=== PATIENT | female | born 2000 | race Caucasian/White ===

== ENCOUNTER 2021-02-16 23:45 | Observation (INO) | payer BC ==
[2021-02-17] MEDS ORDERED: Ondansetron PF 4 MG/2 ML Vial IVP PRN (00:32)
[2021-02-17] MEDS ORDERED: Ondansetron ODT 4 MG TAB PO PRN (00:32)
[2021-02-17] MEDS ORDERED: Morphine 4 MG/ML VIAL SLOW IVP PRN (00:35)
[2021-02-17] MEDS ORDERED: FLU VACC QS2021-22(6MOS UP)/PF 60 MCG/0.5 ML SYRINGE IM ONE (02:15)
[2021-02-17 03:49] VITALS: BMI 25.1
[2021-02-17 04:01] LABS: SARS-CoV-2 NAA Rapid Test Not Detected (NotDetected)
[2021-02-17 06:32] LABS: #Monocytes 0.9 10x3/uL (0.0-1.1); #Neutrophils 8.1 10x3/uL (1.5-8.4); %Basophils 0.3 % (0.0-2.0); %Eosinophils 0.2 % (0.0-6.0); %Lymphocytes 18.8 % (18.0-47.0); %Monocytes 8.3 % (0.0-10.0); Hemoglobin 12.7 g/dL (12.0-15.5); Mean Corpuscular HGB CONC 33.2 g/dL (32.0-36.0); Mean Corpuscular Hemoglobin 28.7 pg (27.0-33.0); Mean Corpuscular Volume 86.2 fl (81.6-98.3); Mean Platelet Volume 9.6 fl (7.4-10.4); Platelet Count 341 10x3/uL (150-450); RBC Distribution Width 13.3 % (11.5-14.5); Red Blood Cell (RBC) Count 4.43 10x6/uL (3.90-5.03); White Blood Cell (WBC) Count 11.3 10x3/uL (3.5-10.5)
[2021-02-17 10:16] LABS: Hemoglobin 12.3 g/dL (12.0-15.5); Mean Corpuscular HGB CONC 32.5 g/dL (32.0-36.0); Mean Corpuscular Hemoglobin 28.3 pg (27.0-33.0); Mean Corpuscular Volume 87.1 fl (81.6-98.3); Mean Platelet Volume 9.3 fl (7.4-10.4); Platelet Count 314 10x3/uL (150-450); RBC Distribution Width 13.3 % (11.5-14.5); Red Blood Cell (RBC) Count 4.35 10x6/uL (3.90-5.03); White Blood Cell (WBC) Count 10.5 10x3/uL (3.5-10.5)
[2021-02-17] MEDS ORDERED: Bupivacaine HCl 0.5%/Epinephrine 1:200,000/PF 30 ml Vial ONE (10:30)
[2021-02-17] MEDS ORDERED: Ibuprofen 800 MG TAB PO PRN (18:18)
[2021-02-17] MEDS ORDERED: traMADol HCl 50 MG TAB PO PRN (18:19)
[2021-02-17] MEDS ORDERED: traMADol HCl 50 MG TAB PO SCH (18:30)
[2021-02-17] MEDS ORDERED: Lactated Ringer's 1,000 ML IV SCH (18:45)
[2021-02-17 21:44] VITALS: BP 116/63; TEMP 98.6
[2021-02-23 05:37] LABS: Chlam.trachomatis by PCR,Urine Not Detected (NotDetected)
== END 2021-02-17 21:20 | disposition home or self-care (01) ==
LOC: INTOOBSV 23:45 → UNDOADMOB 23:45 → CSHPP 23:45 → UNDODISOB 02-17 21:20
PROVIDERS: ADMIT Obstetrics & Gynecology; ATTEND Obstetrics & Gynecology
PROC: 0UJ84ZZ Inspection of Fallopian Tube, Percutaneous Endoscopic Approach (ICD-10-PCS; principal; 2021-02-17)
DX: O00.102 Left tubal pregnancy without intrauterine pregnancy (principal); O08.1 Delayed or excessive hemorrhage following ectopic and molar pregnancy; R10.9 Unspecified abdominal pain; Z20.822 Contact with and (suspected) exposure to COVID-19
CPT/HCPCS: 36415; 76856; 85025; 86850; 86900; 86901; 87491; 87591; 96374; G0378; J2270; J7120; U0002